=== PATIENT | female | born 1955 | race Two or more races ===

== ENCOUNTER 2018-10-23 10:37 | Emergency (ER) | payer OTHER ==
[~2018-10-23] VITALS: Ht 154.9 cm; Wt 68.5 kg
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
--- NOTE | 2018-10-23 11:26 | NUR ---
SEEN AND EXAMINED BY SAMSON NICOLE
[2018-10-23] MEDS ORDERED: ONDANSETRON 4 MG TAB.RAPDIS ONE (11:29)
[2018-10-23] MEDS ORDERED: TRAMADOL HCL 50 MG TABLET ONE (11:29)
[2018-10-23] MEDS ORDERED: TRAMADOL HCL 50 MG TABLET PO ONE (11:30)
[2018-10-23] MEDS ORDERED: ONDANSETRON 4 MG TAB.RAPDIS PO ONE (11:30)
--- NOTE | 2018-10-23 11:33 | NUR ---
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
[2018-10-23 12:26] VITALS: BP 145/70
--- NOTE | 2018-10-23 12:30 | NUR ---
Patient discharged to home in stable condition. Written and verbal after care instructions given. Patient verbalizes understanding of instruction.
== END 2018-10-23 12:39 | disposition home or self-care (01) ==
LOC: ER 10:39
DX: S20.211A Contusion of right front wall of thorax, initial encounter (principal); M25.531 Pain in right wrist; M25.511 Pain in right shoulder; M25.562 Pain in left knee; V49.49XA Driver injured in collision with other motor vehicles in traffic accident, initial encounter; Y93.89 Activity, other specified; Y92.413 State road as the place of occurrence of the external cause; Y99.8 Other external cause status
CPT/HCPCS: 29125; 71100; 73110; 93005; 99283; Q0162